=== PATIENT | male | born 1965 | race American Indian/Alaskan Native ===

== ENCOUNTER 2019-12-29 02:55 | Emergency (ER) | payer OTHER ==
--- NOTE | 2019-12-29 03:03 | EDM.PDOC ---
ED HPI GENERAL MEDICAL PROBLEM - General Chief Complaint: Lower Extremity Injury/Pain Stated Complaint: AMBULANCE Time Seen by Provider: 12/29/19 03:00 Source of Information: Reports: Patient History Limitations: Reports: No Limitations - History of Present Illness INITIAL COMMENTS - FREE TEXT/NARRATIVE: states had 2 shooters prior to going to sleep and woke up unable move right shoulder, unable to recall falling onto it. also c/o both knees hurting from multiple old injuries. Right Clavicle Pain Score (Numeric/FACES): 10 - Related Data Allergies Allergy/AdvReac Type Severity Reaction Status Date / Time duloxetine Allergy Abdominal Verified 12/29/19 02:55 Pain oxycodone Allergy Nausea Verified 12/29/19 02:55 zolpidem Allergy Cannot Verified 12/29/19 02:55 Remember Home Meds: Home Meds . [No Known Home Meds] 12/29/19 [History] Review of Systems - Review of Systems Review Of Systems: Comprehensive ROS is negative, except as noted in HPI. ED EXAM, GENERAL - Physical Exam Exam: See Below Exam Limited By: No Limitations General Appearance: Alert, WD/WN, Mild Distress, Other (discomfort) Ears: Hearing Grossly Normal Throat/Mouth: Normal Voice, No Airway Compromise Head: Atraumatic Neck: Non-Tender, Full Range of Motion Respiratory/Chest: No Respiratory Distress Cardiovascular: Regular Rate, Rhythm GI/Abdominal: Soft, Non-Tender Extremities: Other (right shoulder tender R/P, NV wnl. both knees with normal ROM without problems, no gross D/D, NV wnl) Neurological: Alert, Oriented, Normal Cognition, No Motor/Sensory Deficits Psychiatric: Tearful Skin Exam: Warm, Dry, Normal Color Lymphatic: No Adenopathy Course - Vital Signs Last Recorded V/S: Last Vital Signs Temp 35.9 C L 12/29/19 02:59 Pulse 75 12/29/19 02:59 Resp 16 12/29/19 02:59 BP 136/78 12/29/19 02:59 Pulse Ox 96 12/29/19 02:59 - Orders/Labs/Meds Orders: Active Orders 24 hr Category Date Time Status Shoulder 1V Rt [CR] Urgent Exams 12/29/19 02:59 Taken Ibuprofen [Motrin] Med 12/29/19 04:03 Once 600 mg PO ONETIME ONE Labs: Laboratory Tests 12/29/19 12/29/19 12/29/19 Range/Units 03:05 03:05 03:35 WBC 9.5 (5.0-10.0) 10^3/uL RBC 5.36 (4.6-6.2) 10^6/uL Hgb 16.6 (14.0-18.0) g/dL Hct 47.7 (40.0-54.0) % MCV 89.0 (80-100) fL MCH 31.0 (27.0-34.0) pg MCHC 34.8 (33.0-35.0) g/dL Plt Count 236 (150-450) 10^3/uL Neut % (Auto) 73.9 (42.2-75.2) % Lymph % (Auto) 15.7 L (20.5-50.1) % [place] % (Auto) 6.4 (2-8) % Eos % (Auto) 3.4 H (1.0-3.0) % Baso % (Auto) 0.6 (0.0-1.0) % Sodium 144 (136-145) mmol/L Potassium 3.8 (3.5-5.1) mmol/L Chloride 105 (98-107) mmol/L Carbon Dioxide 24 (21-32) mmol/L Anion Gap 18.8 H (7-13) mEq/L BUN 11 (7-18) mg/dL Creatinine 1.01 (0.70-1.30) mg/dL Est Cr Clr Drug Dosing 84.58 mL/min Estimated GFR (MDRD) > 60 BUN/Creatinine Ratio 10.9 (No establ ref range) Glucose 104 H (74-99) mg/dL Calcium 8.6 (8.5-10.1) mg/dL Total Bilirubin 0.6 (0.2-1.0) mg/dL AST 20 (15-37) U/L ALT 36 (16-63) U/L Alkaline Phosphatase 68 (46-116) U/L Total Protein 7.6 (6.4-8.2) g/dL Albumin 4.2 (3.4-5.0) g/dL Globulin 3.4 Albumin/Globulin Ratio 1.2 Urine Opiates Screen Negative (NEGATIVE) Ur Oxycodone Screen Negative (NEGATIVE) Urine Methadone Screen Negative (NEGATIVE) Ur Barbiturates Screen Negative (NEGATIVE) U Tricyclic Antidepress Negative (NEGATIVE) Ur Phencyclidine Scrn Negative (NEGATIVE) Ur Amphetamine Screen Negative (NEGATIVE) U Methamphetamines Scrn Negative (NEGATIVE) Urine MDMA Screen Negative (NEGATIVE) U Benzodiazepines Scrn Negative (NEGATIVE) Urine Cocaine Screen Negative (NEGATIVE) U Marijuana (THC) Screen Positive H (NEGATIVE) Ethyl Alcohol 76 (0) mg/dL - Re-Assessments/Exams Free Text/Narrative Re-Assessment/Exam: 12/29/19 04:04 results discussed with pt. Departure - Departure Time of Disposition: 04:04 Disposition: Home, Self-Care 01 Condition: Good Clinical Impression: Degenerative joint disease of acromioclavicular joint - Discharge Information Instructions: Arthritis, [id number] Forms: ED Department Discharge Additional Instructions: 1) avoid excess activity for 4 to 5 days 2) use heat or ice to sore area 3) take tylenol or motrin for discomfort Sepsis Event Note - Focused Exam Vital Signs: Vital Signs Temp Pulse Resp BP Pulse Ox 12/29/19 02:59 35.9 C L 75 16 136/78 96 Date Exam was Performed: 12/29/19 Time Exam was Performed: 04:04 - My Orders Last 24 Hours: My Active Orders 12/29/19 02:59 Shoulder 1V Rt [CR] Urgent 12/29/19 04:03 Ibuprofen [Motrin] 600 mg PO ONETIME ONE - Assessment/Plan Last 24 Hours: My Active Orders 12/29/19 02:59 Shoulder 1V Rt [CR] Urgent 12/29/19 04:03 Ibuprofen [Motrin] 600 mg PO ONETIME ONE
[2019-12-29 03:29] LABS: ANION GAP 18.8 mEq/L (7-13); CHLORIDE,CL 105 mmol/L (98-107); SODIUM,NA 144 mmol/L (136-145)
[2019-12-29] MEDS ORDERED: Ibuprofen 600 MG Tab PO ONE (04:03)
== END 2019-12-29 04:09 | disposition home or self-care (01) ==
LOC: DL.ED 02:55
DX: M19.011 Primary osteoarthritis, right shoulder (principal); Z88.8 Allergy status to other drugs, medicaments and biological substances; Z88.5 Allergy status to narcotic agent
CPT/HCPCS: 36415; 73020-RT; 80053; 80305-QW; 80307; 85025; 99282; 99284; A9270-GY

== ENCOUNTER 2020-08-05 10:35 | Emergency (ER) | payer OTHER ==
[2020-08-05] MEDS ORDERED: Ibuprofen 400 MG Tab PO ONE ×2 (10:36→10:59)
[2020-08-05] MEDS ORDERED: Mupirocin Oint 22 GM Tube TOP ONE (10:59)
--- NOTE | 2020-08-05 11:08 | EDM.PDOC ---
ED HPI GENERAL MEDICAL PROBLEM - General Chief Complaint: ENT Problem Stated Complaint: possible nose infection Time Seen by Provider: 08/05/20 10:55 Source of Information: Reports: Patient, RN, RN Notes Reviewed History Limitations: Reports: No Limitations - History of Present Illness INITIAL COMMENTS - FREE TEXT/NARRATIVE: Patient presents to the ED via personal vehicle with complaints of bilateral nare pain. He states he was trimming his nose hairs with an electric razor this past Sunday (08/03/2020). He reports he began to feel burning, sharp pain to his bilateral medial nares upon awakening the next morning. He reports this pain has progressively worsened since that time. He states the pain somewhat improved with one dose of ibuprofen 200mg, but when the pain returned it was worse than prior to the medication. He denies fever, shaking chills, cough, sore throat, headache, sinus pressure/pain, or ear drainage/pressure/pain. He does attest to drainage from each nare which he felt to be purulent. He does attest to smoking a pack of cigarettes a day, but denies alcohol or recreational drug use. Bilateral Nose Pain Score (Numeric/FACES): 10 - Related Data Allergies Allergy/AdvReac Type Severity Reaction Status Date / Time duloxetine Allergy Abdominal Verified 08/05/20 10:40 Pain oxycodone Allergy Nausea Verified 08/05/20 10:40 zolpidem Allergy Cannot Verified 08/05/20 10:40 Remember Home Meds: Home Meds . [No Known Home Meds] 12/29/19 [History] Social & Family History - Family History Family Medical History: No Pertinent Family History - Tobacco Use Tobacco Use Status *Q: Current Every Day Tobacco User Years of Tobacco use: 4 Packs/Tins Daily: 0.2 - Caffeine Use Caffeine Use: Reports: None - Recreational Drug Use Recreational Drug Use: No ED ROS ENT - Review of Systems Review Of Systems: Comprehensive ROS is negative, except as noted in HPI. ED EXAM, ENT - Physical Exam Exam: See Below Exam Limited By: No Limitations General Appearance: Alert, WD/WN, No Apparent Distress Eye Exam: Bilateral Eye: EOMI, Normal Inspection, PERRL Ears: Normal External Exam, Normal Canal, Hearing Grossly Normal, Normal TMs Nose: No Blood, Clear Rhinorrhea, Nasal Swelling, Nasal Tenderness, Injected Turbinates, Other (Open sores to bilateral, distal septum). No: Nasal Deformity, Nasal Ecchymosis, Foreign Body, Septal Deformity, Septal Hematoma, Septal Perforation, Active Bleeding Mouth/Throat: Normal Gums, Normal Lips, Normal Teeth, Other (Dry mucous membranes) Head: Atraumatic, Normocephalic Neck: Normal Inspection, Supple, Non-Tender, Full Range of Motion. No: Lymphadenopathy (L), Lymphadenopathy (R) Neurological: Alert, Oriented, CN II-XII Intact, Normal Cognition, Normal Gait, No Motor/Sensory Deficits Psychiatric: Normal Affect, Normal Mood Skin: Warm, Dry, Intact, Normal Color, No Rash, Wound/Incision (Open sore to bilateral, distal septum). No: Ecchymosis, Erythema, Mottled, Pallor, Petechiae Course - Vital Signs Last Recorded V/S: Last Vital Signs Temp 97.4 F 08/05/20 10:44 Pulse 101 H 08/05/20 10:44 Resp 20 08/05/20 10:44 BP 147/89 H 08/05/20 10:44 Pulse Ox 98 08/05/20 10:44 - Orders/Labs/Meds Orders: Active Orders 24 hr Category Date Time Status Ibuprofen [Motrin] Med 08/05/20 10:59 Once 400 mg PO ONETIME ONE Mupirocin Oint [Bactroban Oint] Med 08/05/20 10:59 Once 1 gm TOP ONETIME ONE - Re-Assessments/Exams Free Text/Narrative Re-Assessment/Exam: 08/05/20 11:10 Will treat with Bactroban 2% ointment and ibuprofen 400mg every six hours. Departure - Departure Time of Disposition: 11:15 Disposition: Home, Self-Care 01 Condition: Good Clinical Impression: Nasal sore - Discharge Information *PRESCRIPTION DRUG MONITORING PROGRAM REVIEWED*: Not Applicable *COPY OF PRESCRIPTION DRUG MONITORING REPORT IN PATIENT DALE: Not Applicable Instructions: Wound Care, Adult Additional Instructions: Rx: ibuprofen Rx: Bactroban 2% Apply ointment to nose two times a day for seven days. Keep area clean and dry; avoid touching the area. Follow up with your primary care provider in seven days, or with fever, shaking chills, or worsening pain with treatment. Sepsis Event Note (ED) - Evaluation Sepsis Screening Result: No Definite Risk - Focused Exam Vital Signs: Vital Signs Temp Pulse Resp BP Pulse Ox 08/05/20 10:44 97.4 F 101 H 20 147/89 H 98 - My Orders Last 24 Hours: My Active Orders 08/05/20 10:59 Ibuprofen [Motrin] 400 mg PO ONETIME ONE Mupirocin Oint [Bactroban Oint] 1 gm TOP ONETIME ONE - Assessment/Plan Last 24 Hours: My Active Orders 08/05/20 10:59 Ibuprofen [Motrin] 400 mg PO ONETIME ONE Mupirocin Oint [Bactroban Oint] 1 gm TOP ONETIME ONE
[2020-08-05] MEDS ORDERED: Ibuprofen 400 MG Tab ONE (11:15)
== END 2020-08-05 11:22 | disposition home or self-care (01) ==
LOC: DL.ED 10:35
DX: L98.9 Disorder of the skin and subcutaneous tissue, unspecified (principal); F17.210 Nicotine dependence, cigarettes, uncomplicated; Z88.8 Allergy status to other drugs, medicaments and biological substances; Z88.5 Allergy status to narcotic agent
CPT/HCPCS: 99282; A9270

== ENCOUNTER 2022-08-13 17:20 | Emergency (ER) | payer OTHER ==
[2022-08-13] MEDS ORDERED: Codeine/Promethazine 10-6.25 MG/5 ML Syrup 5 ML UD Cup PO ONE (17:59)
[2022-08-13] MEDS ORDERED: Albuterol/Ipratropium 3.0-0.5 MG/3 ML Neb Soln NEB ONE (17:59)
[2022-08-13] MEDS ORDERED: Sodium Chloride 0.9% 1,000 ML IV ONE (18:00)
[2022-08-13] MEDS ORDERED: Ketorolac 30 MG/ML SDV IVPUSH ONE (18:00)
[2022-08-13 18:26] LABS: CORONAVIRUS COVID-19 NAA NEGATIVE (NEGATIVE); RESPIRATORY SYNCYTIAL VIR NAA NEGATIVE (NEGATIVE)
[2022-08-13] MEDS ORDERED: Oseltamivir 75 MG Cap PO ONE (18:36)
== END 2022-08-13 18:54 | disposition home or self-care (01) ==
LOC: DL.ED 17:20
DX: J10.1 Influenza due to other identified influenza virus with other respiratory manifestations (principal); F17.210 Nicotine dependence, cigarettes, uncomplicated; Z88.5 Allergy status to narcotic agent; Z88.8 Allergy status to other drugs, medicaments and biological substances; Z20.822 Contact with and (suspected) exposure to COVID-19
CPT/HCPCS: 0241U; 71045; 94640; 96361; 96374; 99284; A9270; J1885; J7030; J7620-GY